=== PATIENT | male | born 1975 | race Hispanic/Latino ===

== ENCOUNTER 2017-09-02 20:28 | Emergency (ER) | payer SELFPAY ==
[2017-09-02 21:20] VITALS: O2SAT 97
--- NOTE | 2017-09-02 21:49 | C.PDOC ---
History Of Present Illness 42M c/o intermittent left side facial numbness and slurred speech he woke up with this morning around 7am. last normal 12am last night. his brother recently and was yesterday. also reports intermittent chest pain since this morning as well. denies headache, numbness or weakness in the extremities, or any other complaints. Time Seen by Provider: 09/02/17 21:48 Chief Complaint (Nursing): Weakness/Neurological Deficit Past Medical History Vital Signs: Last Vital Signs Temp 98.2 F 09/02/17 21:17 Pulse 89 09/02/17 23:01 Resp 14 09/02/17 23:01 BP 115/63 09/02/17 23:01 Pulse Ox 97 09/03/17 00:15 - [facility] Procedures TETANUS TOXOID ADMINIST (12/12/13) Family History: States: Other Other Family History: nc - Social History Hx Tobacco Use: No Hx Alcohol Use: Yes Hx Substance Use: No - Immunization History Hx Tetanus Toxoid Vaccination: Yes (12/12/2013) Hx Influenza Vaccination: No Hx Pneumococcal Vaccination: No Review Of Systems Except As Marked, All Systems Reviewed And Found Negative. Constitutional: Negative for: Fever, Chills Cardiovascular: Positive for: Chest Pain. Negative for: Edema Respiratory: Negative for: Cough, Shortness of Breath Gastrointestinal: Negative for: Nausea, Vomiting, Abdominal Pain Neurological: Positive for: Numbness. Negative for: Weakness, Confusion, Altered Mental Status, Headache, Dizziness Physical Exam - Physical Exam Appears: Well, Non-toxic, No Acute Distress Skin: Warm, Dry Head: Atraumatic Eye(s): bilateral: PERRL, EOMI Nose: No Epistaxis Oral Mucosa: Moist Neck: Normal ROM Cardiovascular: Rhythm Regular Respiratory: No Decreased Breath Sounds, No Accessory Muscle Use Gastrointestinal/Abdominal: Soft, No Tenderness Extremity: No Swelling Pulses: Left Radial: Normal, Right Radial: Normal Neurological/Psych: Oriented x3, Normal Cranial Nerves, No Cerebellar Signs, Normal Motor, Normal Sensation, Other (no focal deficits) ED Course And Treatment - Laboratory Results Result Diagrams: 09/02/17 22:57 09/02/17 22:57 O2 Sat by Pulse Oximetry: 97 - CT Scan/US CT Head Other Rad Studies (CT/US): Read By Radiologist, Radiology Report Reviewed CT/US Interpretation: EXAM: CT Head Without Intravenous Contrast. EXAM DATE/ TIME: 09/02/2017 10:04 PM. CLINICAL HISTORY: 42 years old, male; Signs and symptoms; Speech disturbance; Additional info: Facial numbness. TECHNIQUE: Axial computed tomography images of the head/brain without intravenous contrast. All CT scans at. this facility use one or more dose reduction techniques, viz.: automated exposure control; ma/kV. adjustment per patient size (including targeted exams where dose is matched to indication; i.e. head); . or iterative reconstruction technique. COMPARISON: There are no prior studies for comparison. FINDINGS: Brain: Ventricles are normal in size and configuration. There is no midline shift. There is mild. prominence of sulci and gyri. There are no intra-axial or extra-axial mass lesions or areas of. hemorrhage. There are no abnormal fluid collections. Avitia-white differentiation is maintained. Ventricles: See above. Bones: Cranial vault is intact. Soft tissues: unremarkable. Sinuses: There is right maxillary, ethmoid and frontal sinusitis. Ears and mastoids: Middle ears and mastoids are unremarkable. Orbits: Orbital contents are unremarkable. [facility]. [facility]. Final Radiology Report [id number]. Name: MCKAYLA CORDOBA Age: 42Years M Date: 09/02/2017. SSN: [id number] : 1975. Study: CT HEAD WO Requesting Physician: Maximiliano Melchor. Images: 130. Addl Studies: Provided Clinical History: facial numbness. CONFIDENTIALITY STATEMENT. This transmission is confidential and is intended to be a privileged communication. It is intended only for the use of the addressee. Access to this. message by anyone else is unauthorized. If you are not the intended recipient, any disclosure, copying, distribution or any action taken, or omitted to. be taken in reliance on it is prohibited and may be unlawful. If you received this communication in error, please notify us by telephone, so that return. of this document to us can be arranged. Page 2 of 2. IMPRESSION: Sinusitis; no acute intracranial abnormality. Thank you for allowing us to participate in the care of your patient. Dictated and Authenticated by: KorMary Castellon MD. 09/02/2017 11:27 PM Eastern Time ([place] & [place]) NIHSS Stroke Scale - Date/Time Evaluation Performed Time Performed: 22:00 - How Severe is the Stoke Level of Consciousness: 0=Alert LOC to Questions: 0=Both comments correct LOC to commands: 0=Obeys both correctly Best Gaze: 0=Normal Visual: 0=No visual loss Facial: 0=Normal Motor Arm - Left: 0=No drift Motor Arm - Right: 0=No drift Motor Leg - Left: 0=No drift Motor Leg - Right: 0=No drift Limb Ataxia: 0=Absent Sensory: 0=Normal Best Language: 0=No aphasia Dysarthia: 0=Normal articulation Extinction & Inattention (Neglect): 0=Normal, no object Score: 0 Severity Of Stroke: 0= No Stroke rTPA Inclusion/Exclusion - Refusal of Treatment Patient Refused Treatment: No - Inclusion Criteria for Altepase Patient is 18 years or Older: Yes The Clinical Diagnosis of Ischemic Stroke That is Causing a Potentially Disabling Neurological Deficit: No Time of Onset is Well Established to be Less Than 270 Minute Before Treatment Would Begin: No Risk/Benefit Discussed With Patient/Family Member Present: No Medical Decision Making Medical Decision Making: CXR: no acute findings EKG: Normal Sinus Rhythm at 86bpm, normal axis, and no acute ischemia. 1153pm the pt states his symptoms are better. I recommended admission but the pt does not wish to stay. I disc my concern that this may be a mini-stroke and this could be followed by a much larger stroke that could cause paralysis, permanent disability, or even . He v/u and still wishes to leave. The patient is clinically sober, free from distracting injury, appears to have intact insight and judgment and reason and in my opinion has the capacity to make decisions. He understands he may return at any time should he change his mind. Disposition - Disposition Referrals: [facility] [Outside] Disposition: AGAINST MEDICAL ADVICE Disposition Time: 00:02 Condition: STABLE Additional Instructions: Please follow up with a primary doctor in the next week. You may return to the ER ay any time should you change your mind. Instructions: Transient Ischemic Attack (ED) Forms: General Discharge Instructions, [facility] (Romansh) - Clinical Impression Clinical Impression: Left facial numbness, Slurred speech
[2017-09-02 23:04] LABS: BASO # 0.2 K/uL (0.0-0.2); BASO % 1.6 % (0.0-2.0); EOS # 0.2 K/uL (0.0-0.7); EOS % 1.3 % (0.0-4.0); HEMOGLOBIN 14.2 g/dL (12.0-18.0); LYMPH # 1.1 K/uL (1.0-4.3); MEAN CELL VOLUME 90.1 fL (80.0-94.0); MEAN CORPUSCULAR HEMOGLOBIN 31.7 pg (27.0-31.0); MEAN CORPUSCULAR HGB CONC 35.2 g/dL (33.0-37.0); MEAN PLATELET VOLUME 6.7 fL (7.2-11.7); MONO # 0.8 K/uL (0.0-0.8); MONO % 6.6 % (0.0-10.0); NEUT # 10.2 K/uL (1.8-7.0); NEUT % 81.5 % (50.0-75.0); PLATELET COUNT 228 K/uL (130-400); RBC 4.48 Mil/uL (4.40-5.90); WHITE BLOOD COUNT 12.5 K/uL (4.8-10.8)
[2017-09-02 23:10] LABS: INR 1.2; PROTHROMBIN TIME 13.4 SECONDS (9.7-12.2)
[2017-09-02 23:13] LABS: ALB/GLOB RATIO 1.2 (1.0-2.1); ALBUMIN 4.3 g/dL (3.5-5.0); ALT/SGPT 23 U/L (21-72); AST/SGOT 20 U/L (17-59); BLOOD UREA NITROGEN 14 mg/dL (9-20); CALCIUM 8.3 mg/dl (8.6-10.4); GFR AFRICAN-AMERICAN > 60; GFR NON-AFRICAN AMERICAN > 60; HDL CHOLESTEROL 44 mg/dL (30-70)
[2017-09-02 23:24] LABS: LDL CHOLESTEROL 79 mg/dL (0-129)
--- NOTE | 2017-09-02 23:27 | CT ---
EXAM: CT Head Without Intravenous Contrast EXAM DATE/TIME: 09/02/2017 10:04 PM CLINICAL HISTORY: 42 years old, male; Signs and symptoms; Speech disturbance; Additional info: Facial numbness TECHNIQUE: Axial computed tomography images of the head/brain without intravenous contrast. All CT scans at this facility use one or more dose reduction techniques, viz.: automated exposure control; ma/kV adjustment per patient size (including targeted exams where dose is matched to indication; i.e. head); or iterative reconstruction technique. COMPARISON: There are no prior studies for comparison. FINDINGS: Brain: Ventricles are normal in size and configuration. There is no midline shift. There is mild prominence of sulci and gyri. There are no intra-axial or extra-axial mass lesions or areas of hemorrhage. There are no abnormal fluid collections. Avitia-white differentiation is maintained. Ventricles: See above. Bones: Cranial vault is intact. Soft tissues: unremarkable Sinuses: There is right maxillary, ethmoid and frontal sinusitis Ears and mastoids: Middle ears and mastoids are unremarkable Orbits: Orbital contents are unremarkable. IMPRESSION: Sinusitis; no acute intracranial abnormality
[2017-09-02 23:33] LABS: BANDS 1 % (0-2); LYMPHOCYTE 17 % (20-40); MONOCYTE 5 % (0-10); NEUTROPHIL 77 % (50-75); TOTAL CELLS COUNTED 100
[2017-09-02 23:34] LABS: PLATELET ESTIMATE NORMAL (NORMAL)
[2017-09-03 00:28] VITALS: BP 123/68; PULSE 92; RESP 12; TEMP 98.6
--- NOTE | 2017-09-03 10:31 | RAD ---
HISTORY: cp COMPARISON: No prior. FINDINGS: LUNGS: No active pulmonary disease. PLEURA: No significant pleural effusion identified, no pneumothorax apparent. CARDIOVASCULAR: Normal. OSSEOUS STRUCTURES: Bilateral cervical ribs present. There appears to be a cleft like defect within the left humeral head that could be artifactual however dedicated radiographs of the left shoulder recommended to confirm artifact and exclude other a developmental or congenital anomaly. Clinical correlation with history recommended. Additionally, there is also a vague somewhat triangular-shaped lucency along the lateral aspect right humeral head ; dedicated radiographs of the right shoulder also suggested. VISUALIZED UPPER ABDOMEN: Normal. OTHER FINDINGS: None. IMPRESSION: No acute infiltrates. Cleft like defect left humeral head could be artifactual. There is also a vague somewhat triangular shaped lucency lateral aspect right humeral head. Findings could be artifactual however dedicated radiographs of the right and left shoulders recommended for further evaluation as described. It is Recommended
--- NOTE | 2017-09-03 14:44 | CARD ---
APPROVED REPORT EKG Measurement Heart [id number] <Conclusion> Normal sinus rhythm with sinus arrhythmia Normal ECG
== END 2017-09-03 00:17 | disposition left against medical advice (07) ==
LOC: C.ER 20:28
DX: R20.0 Anesthesia of skin (principal); R47.81 Slurred speech